=== PATIENT | female | born 1940 | race Caucasian/White ===

== ENCOUNTER 2020-01-10 07:50 | Day surgery (SDC) | payer MEDICARE, OTHER ==
[~2020-01-10 07:50] MED LIST: ACETAMINOPHEN 500 MG TABLET PO ONE; CEFAZOLIN 2 Gram 2 GM/50 ML BAG IVPB ONE; FAMOTIDINE 20MG TABLET PO ONE; METOCLOPRAMIDE 10 MG TABLET PO ONE; SCOPOLAMINE 1 PATCH TDSY TD ONE; VANCOMYCIN 1GM/200ML PREMIX 1 GM/200 ML PIGGYBACK IVPB ONE
[2020-01-10] MEDS ORDERED: DEXAMETHASONE 4 MG/ML 1ML VIAL IVP ONE (07:51)
[2020-01-10] MEDS ORDERED: MIDAZOLAM HCL 2MG/2ML VIAL IV ONE (07:51)
[2020-01-10] MEDS ORDERED: PHENYLEPHRINE HCL 10 MG/ML VIAL IVP ONE (07:51)
[2020-01-10] MEDS ORDERED: PROPOFOL 10 MG/ML VIAL IV ONE (07:51)
[2020-01-10] MEDS ORDERED: EPHEDRINE SULFATE 50 MG/ML ML IV ONE (07:51)
[2020-01-10] MEDS ORDERED: ROPIVACAINE HCL (NAROPIN) /PF 5MG/ML 20ML VIAL IV ONE (07:51)
[2020-01-10] MEDS ORDERED: LIDOCAINE 2% MDV (20MG/ML) 20ML VIAL IV ONE (07:51)
[2020-01-10 08:45] LABS: INFLUENZA A NEGATIVE (NEGATIVE); INFLUENZA B NEGATIVE (NEGATIVE)
[2020-01-10] MEDS ORDERED: 0.9 % SODIUM CHLORIDE 1000ML 1,000 ML IV ONE ×2 (08:55→10:45)
[2020-01-10] MEDS ORDERED: BUPIVACAINE LIPOSOME 266MG/20ML VIAL IU ONE (11:21)
[2020-01-10] MEDS ORDERED: TRANEXAMIC ACID 1,000 MG/10 ML ML IU ONE (11:21)
[2020-01-10] MEDS ORDERED: BUPIVACAINE 0.5% W/EPI MPF 30 ML VIAL SQ ONE (11:21)
[2020-01-10] MEDS ORDERED: TRANEXAMIC ACID 1,000 MG/10 ML ML IVPB ONE (11:22)
[2020-01-10] MEDS ORDERED: VANCOMYCIN HCL 1 GM VIAL IR ONE (11:22)
[2020-01-10] MEDS ORDERED: VANCOMYCIN HCL 1 GM VIAL IU ONE (11:22)
[2020-01-10 11:27] LABS: ABO GROUP O; ANTIBODY SCREEN NEGATIVE (NEGATIVE); RH TYPE POSITIVE
[2020-01-10] MEDS ORDERED: HYDROCODONE/APAP 7.5/325MG TABLET PO PRN (12:43)
[2020-01-10] MEDS ORDERED: ACETAMINOPHEN W/ CODEINE 300MG/30MG TABLET PO PRN ×2 (12:43)
[2020-01-10] MEDS ORDERED: ACETAMINOPHEN W/ CODEINE 300MG/60MG TABLET PO PRN (12:43)
[2020-01-10] MEDS ORDERED: TRAMADOL HCL 50 MG TABLET PO PRN ×2 (12:43)
[2020-01-10] MEDS ORDERED: BISACODYL 10 MG SUPP RC PRN (12:43)
[2020-01-10] MEDS ORDERED: DIPHENHYDRAMINE HCL 25 MG CAPSULE PO PRN (12:43)
[2020-01-10] MEDS ORDERED: MAGNESIUM HYDROXIDE 30 ML UDC PO PRN (12:43)
[2020-01-10] MEDS ORDERED: KETOROLAC 30 MG/ML VIAL IVP PRN (12:43)
[2020-01-10] MEDS ORDERED: AL HYDROX/MAG HYDROX 30ML UD PO PRN (12:43)
[2020-01-10] MEDS ORDERED: ZOLPIDEM TARTRATE 5 MG TABLET PO PRN (12:43)
[2020-01-10] MEDS ORDERED: PROMETHAZINE HCL 12.5 MG in 0.9 % SODIUM CHLORIDE 100ML 50 ML IVPB PRN (12:43)
[2020-01-10] MEDS ORDERED: METOCLOPRAMIDE HCL 10 MG/2 ML VIAL IVP PRN (12:43)
[2020-01-10] MEDS ORDERED: ONDANSETRON HCL IV 4 MG/2 ML VIAL IVP PRN (12:43)
[2020-01-10] MEDS ORDERED: ACETAMINOPHEN 325 MG TAB PO PRN (12:43)
[2020-01-10] MEDS ORDERED: HYDROMORPHONE HCL 2 MG/ML VIAL IM PRN ×2 (12:43)
[2020-01-10] MEDS ORDERED: NALOXONE 0.4 MG/1 ML VIAL IVP PRN (12:43)
[2020-01-10] MEDS: DEXTROSE 5 % AND 0.9 % NACL 1,000 ML IV PRN (14:19)
[2020-01-10] MEDS: HYDROCODONE/APAP 5/325MG TABLET PO PRN ×3 (15:10→19:40)
--- NOTE | 2020-01-10 15:15 | Rehab Evaluation ---
Patient Information - Patient Information Diagnosis: L knee DJD Ordered Treatment: PT Evaluate and Treat Status: Initial Evaluation Surgery: Yes (L TKA) Date of Surgery: 01/10/20 Past Medical/Surgical Hx: PAST MEDICAL/SURGICAL HISTORY Surgery to Affected Area? No Recent Surgery? Past Surgical History HYST CERVICAL SURGERIES X'S 2 RIGHT BREAST LUMPECTOMY CANCER 2012 NEPHRECTOMY LEFT CANCER 2017 C SCOPES BILATERAL CATS PMH - Respiratory Hx Respiratory Disorders Yes Hx Bronchitis Yes: HX OF Hx Pneumonia Yes: HX OF Hx Sleep Apnea Yes Hx of CPAP No Hx of URI Yes PMH - Cardiovascular Hx Cardiovascular Disorders No Exercise Tolerance Fair PMH - Neuro Hx Neurological Disorders No PMH - GI Hx Gastrointestinal Disorders Yes Hx Gastroesophageal Reflux Yes: RARELY Hx Irritable Bowel Yes: HX OF PMH - Hx Genitourinary Disorders Yes Hx Renal Disease Yes: CANCER NEPHRECTOMY PMH - Endocrine Hx Endocrine Disorders No PMH - Musculoskeletal Hx Musculoskeletal Disorders Yes Hx Arthritis Yes: LEFT KNEEE Hx Back Injury Yes PMH - Psych Hx Psychiatric Problems Yes Hx Anxiety Yes: ON MEDS WITH FAIR CONTROL Comment: CLAUSTRAPHOBIA PMH - Hematology/Oncology Hx Hematology/Oncology Yes Disorders Hx Anemia Yes: HX OF Hx Bruising Yes Hx Cancer Yes: KIDNEY AND RIGHT BREAST Hx Chemotherapy No Hx Radiation Therapy No Hx Blood Transfusion Reaction No Premorbid Status: Detail (The patient was independent with all mobility prior to surgery.) Social History: Detail (The patient lives with spouse in a 2 story house with 3 steps at the enterance with no handrails. The patient will not be using the second floor prior to surgery. The bathroom is equipped with: a tub/shower combination,tub bench, standard height toilet. There is a garb bar by the tub but not the toilet. The patient has a front wheeled walker, 4 wheeled walker.) Precautions: [place], Fall, Other (WBAT on the L LE.) - Time With Patient Total Time Spent With Patient (Min): 25 Treatment Procedures: Detail (Initial Evaluation, low complexity) Subjective Information - Subjective Information Per Patient (The patient had level 1 pain in L knee initially. The patient compl ained of numbness in L foot when standing and ambulating.) Objective Data - Mental Status Patient Orientation: Oriented x3 - Visual Perception Appears within normal limits for therapeutic activities - ROM Not within normal limits (The patient's L knee AROM was limited s/p surgery. All other LE AROM was WNL.) - Strength/Tone Other (The patient's LE strength was not tested s/p surgery however was functional.) - Bed Mobility Independent (The patient was independent with supine to and from sit transfer and scooting up in bed.) - Transfers Independent (The patient was independent with sit to and from stand transfer.) - Balance Balance Sitting: Good Balance Standing: Good - Gait Detail (The patient ambulated with front wheeled walker a distance of 7.5 feet x 2 (to and from bathroom) WBAT on L LE with supervision of one for safety. The patient declined to ambulate in ta do to numbness in L foot. The patient's L knee occasonally buckled also.) Therapy Assessment - Therapy Assessment Detail (The patient was independent with transfers and bed mobility and ambulated with supervision for safety. The patient will be seen for 1 to 2 sessions for completion of inpt. PT goals.) Problem List - Problem List Physical Therapy Problem List: Detail (Decreased L knee AROM and decreased L LE strength) Goals - Goals Physical Therapy Goals: 1) The patient will ambulate with assistive device WBAT on the L LE a distance of 100 feet independently. 2) The patient will ambulate on stairs using proper technique with supervision for safety. 3) The patient will be independent with TKA HEP. Prognosis - Prognosis Good Plan - Plan Physical Therapy Plan: PT 1-2 sessions for instruction in TKA HEP and gait training on levels and stairs.
[2020-01-10] MEDS: VANCOMYCIN 1GM/200ML PREMIX 1 GM/200 ML PIGGYBACK IVPB SCH (21:31)
[2020-01-10] MEDS: FERROUS SULFATE 325 MG TAB PO SCH (21:32)
[2020-01-10] MEDS: DOCUSATE SODIUM 100 MG CAPSULE PO SCH (21:33)
[2020-01-10] MEDS ORDERED: TRAZODONE 50MG PO SCH (22:00)
[2020-01-10] MEDS ORDERED: PRAVASTATIN 40MG PO SCH (22:00)
[2020-01-11] MEDS: HYDROCODONE/APAP 5/325MG TABLET PO PRN ×2 (00:51→07:01)
[2020-01-11] MEDS: DEXTROSE 5 % AND 0.9 % NACL 1,000 ML IV PRN (00:52)
[2020-01-11] MEDS: CITALOPRAM 20 MG PO SCH ×2 (07:03→09:29)
--- NOTE | 2020-01-11 07:13 | Operative Note ---
DATE OF SURGERY: 01/10/2020 PREOPERATIVE DIAGNOSIS: END STAGE LEFT KNEE ARTHROSIS. POSTOPERATIVE DIAGNOSIS: END STAGE LEFT KNEE ARTHROSIS. OPERATION: LEFT TOTAL KNEE ARTHROPLASTY. SURGEON: Nikita Schafer M.D. ANESTHESIA: Spinal. ANESTHESIA PROVIDER: Gage Figueroa CRNA COMPLICATIONS: None. BLOOD LOSS: Minimal. TOURNIQUET: No tourniquet. Aquamantys used during the entire procedure. OPERATIVE FINDINGS: Chondromalacia to the medial compartment. COMPONENTS PLACED: A 2 gram Vancomycin cemented [employer] Journey II Oxinium total knee arthroplasty system size 3 femoral component, size 3 tibial baseplate, a 13 mm thick tibial poly insert and a 29 mm cemented patellar component. INDICATIONS: This is a 79-year-old female with knee arthrosis and pain for several years. She has failed nonoperative treatments including antiinflammatory injections, and steroid injections and she wished to proceed with knee replacement at this point. I explained the risks and benefits in detail for the diagnosis and procedure including, but not limited to infection, nerve injury, vessel injury, persistent pain, stiffness, numbness and tingling in the knee, periprosthetic fracture, need for resection arthroplasty if components become infected or loosen, nerve injury, vessel injury, blood clot, need for anticoagulation, risks associated with these medications, and need for further procedures. All of her questions were answered. Rehab course outlined. She agreed to proceed. PROCEDURE: The patient was brought to the Operating Room, placed in the supine position after spinal anesthesia induced. The left lower extremity and knee were prepped and draped in sterile fashion. Left knee was prepped again with ChloraPrep after it was draped. Intraoperative timeout was performed. The leg was exsanguinated with Esmarch. No tourniquet was used. Aquamantys was used in every layer of the procedure for cauterization. Next the skin and subcutaneous tissues were dissected down, dissected down to the medial capsule. Incised the medial capsule along the medial border of the patella to the tibial tubercle. Incised the vastus medialis in line with its fibers in a mid vastus approach. Next we partially resected the retropatellar fat pad, elevated the capsule subperiosteally and medially, everted the patella, flexed the knee. She had chondromalacia of the medial compartment. We did Aquamantys cautery in every layer here. Next drilled intracondylar drill hole, inserted the intramedullary guide gaby, 6- degree cutting block, all aligned off the distal femoral condyles. Pinned it in place +2 mm position and cut the distal femoral condyles. Next we placed a sizing jig on the distal femoral condyle and sized it to be right on size 3. Next through the previously placed pin holes, we placed a size 3 5-in-1 cutting jig down to the anterior cut so it would come out flush without notching. We cut that cut and it was a good cut, and then cut the remainder of the chamfer cuts in the usual fashion. Next placed a size 3 femoral component, centered it, pinned it, and then inserted the resection collet, reamed out and box Osteomed with the cruciate bone block. Next we removed osteophytes off the periphery. Next attention was turned to the tibia. We exposed the tibia, seated the spikes, external alignment jig in the tubercular groove 2 fingerbreadths distal to the anterior tibial cortex for slight posterior slope in reference for a 7 mm cut off the higher lateral plateau and we pinned the cutting jig provisionally to the anterior-posterior pins. Next we then rechecked the cutting jig with a drop gaby centered on the tibial anatomic axis and cross-pinned it completing its fixation. Next we cut the tibia. Next we removed osteophytes off the posterior femoral condyles using a curved osteotome and again checked flexion/extension gaps with a 9 mm thick poly insert and we sized up to basically a 13, this allowed for 1-2 mm varus valgus laxity in flexion/extension. Overall alignment cuts and extension with anatomic valgus orientation, the alignment gaby centered the hip joint and ankle joint. Next we took the knee in flexion and sized the tibial base plate to a size 3, replaced all trial components, set the rotation tibial baseplate again in extension using the alignment gaby centered on the hip joint and ankle joint. Marked fem dorantes on the anterior cortex off the laser dorantes of the tibial baseplate. Attention was turned to the patella. Measured the patella, set the cutting jig to allow for a 9 mm thick poly insert, cut the patella, remeasured right on 12, sized to be 29, drilled three peg holes and inserted the trial patella component, mixed cement. The patella tracked nicely handsfree with full extension, approximately 120-130 degrees. We then changed gloves and brought in clean sheets. We copiously irrigated the bony surfaces with pulse lavage antibiotic solution, cauterized the posterior capsule mediolateral again with Aquamantys and then placed a bone plug in the femoral canal hole. Next, after irrigation and CarboJet to dry off the bone, we pre-coated both surfaces with cement, packed down the tibial component and then the femoral component. We placed the trial tibial poly liner, held the knee in extension until the cement hardened and clamped down the patellar component removing excess cement as we went. We took the knee in flexion, distracted the knee with bone hook and sponge. We removed the trial patellar and tibial component, irrigated copiously removing any excess cement, again cauterized, irrigated, cauterized and then inserted our joint mixture with several sticks into the posterior capsule and mediolateral periosteum. Inserted the real tibial poly insert and verified it was interlocked mediolaterally, found range of motion to be the same. We irrigated, cauterized again closing capsule in flexion using the running #2 Quill suture. We irrigated it again, closed the skin deep with 2-0 Vicryl and JACQUES dressing was applied. The patient tolerated the procedure well. No intraoperative complications. Sponge, needle and blade counts were correct. Recovery Room stable. Neurovascularly intact. Discharged as an outpatient and discharge will likely be tomorrow. Follow-up in two weeks. JOB NUMBER: [id number] MTDD
[2020-01-11 07:14] LABS: HEMOGLOBIN 11.3 gm/dl (11.6-16.0)
--- NOTE | 2020-01-11 07:54 | Rehab Evaluation ---
Patient Information - Patient Information Diagnosis: L knee DJD Ordered Treatment: OT Evaluate and Treat Status: Initial Evaluation Surgery: Yes (L TKA) Date of Surgery: 01/10/20 Past Medical/Surgical Hx: PAST MEDICAL/SURGICAL HISTORY Surgery to Affected Area? No Recent Surgery? Past Surgical History HYST CERVICAL SURGERIES X'S 2 RIGHT BREAST LUMPECTOMY CANCER 2012 NEPHRECTOMY LEFT CANCER 2017 C SCOPES BILATERAL CATS PMH - Respiratory Hx Respiratory Disorders Yes Hx Bronchitis Yes: HX OF Hx Pneumonia Yes: HX OF Hx Sleep Apnea Yes Hx of CPAP No Hx of URI Yes PMH - Cardiovascular Hx Cardiovascular Disorders No Exercise Tolerance Fair PMH - Neuro Hx Neurological Disorders No PMH - GI Hx Gastrointestinal Disorders Yes Hx Gastroesophageal Reflux Yes: RARELY Hx Irritable Bowel Yes: HX OF PMH - Hx Genitourinary Disorders Yes Hx Renal Disease Yes: CANCER NEPHRECTOMY PMH - Endocrine Hx Endocrine Disorders No PMH - Musculoskeletal Hx Musculoskeletal Disorders Yes Hx Arthritis Yes: LEFT KNEEE Hx Back Injury Yes PMH - Psych Hx Psychiatric Problems Yes Hx Anxiety Yes: ON MEDS WITH FAIR CONTROL Comment: CLAUSTRAPHOBIA PMH - Hematology/Oncology Hx Hematology/Oncology Yes Disorders Hx Anemia Yes: HX OF Hx Bruising Yes Hx Cancer Yes: KIDNEY AND RIGHT BREAST Hx Chemotherapy No Hx Radiation Therapy No Hx Blood Transfusion Reaction No Premorbid Status: Detail (The patient was independent with all mobility and ADLs prior to surgery.) Social History: Detail (The patient lives with spouse in a 2 story house with 3 steps at the enterance with no handrails. The patient will not be using the second floor prior to surgery. The bathroom is equipped with: a tub/shower combination,tub bench, standard height toilet. There is a garb bar by the tub but not the toilet. The patient has a front wheeled walker, 4 wheeled walker.) Precautions: [place], Fall, Other (WBAT on the L LE.) - Time With Patient Total Time Spent With Patient (Min): 25 Treatment Procedures: Detail (OT eval low) Objective Data - Pain Pain Present: Yes Pain Intensity: 4 (Pt just received pain meds from nsg.) Pain Scale Used: Numeric (1 - 10) - Mental Status Patient Orientation: Oriented x3 - Visual Perception Appears within normal limits for therapeutic activities (Pt wears glasses) - ROM Within normal limits (BUE's) - Strength/Tone Within normal limits (BUE's. Pt does state that she gets a lot of muscular pain in bilateral shlds since her cervical sx's but is "used to it" and has not noticed any issues in arms when using walker) - Coordination Appears within normal limits for therapeutic activities - Bed Mobility Independent (supine to short sit edge of bed) - Transfers Independent (sit <> stand t/f using 2WW) - Balance Balance Sitting: Good - Gait Detail (Pt ambulated independently from bed into bathroom and back but did c/o feeling a little weak.) - ADL's/IADL's Detail (Pt educated on and received handout on modified lower body drsg technique. She demonstrated independence with technique and was able to don socks, pants, shirt, sweater independently. Max A for compression stockings. Pt will have assistance from spouse at home if she has any difficulty in the first few days following sx with reaching feet for sock/shoe don/doff. Independent sit>stand t/f and ambulation using 2WW from bed into bathroom to complete lotion don standing at sink. Independent amb back to bed. Pt with spouse with call light and tray table in reach upon leaving.) Therapy Assessment - Therapy Assessment Detail (Pt educated on and demonstrated independence with modified lower body drsg technique. No further inpatient OT needed at this time.) Problem List - Problem List Physical Therapy Problem List: Detail (Decreased L knee AROM and decreased L LE strength) Goals - Goals Physical Therapy Goals: 1) The patient will ambulate with assistive device WBAT on the L LE a distance of 100 feet independently. 2) The patient will ambulate on stairs using proper technique with supervision for safety. 3) The patient will be independent with TKA HEP. Prognosis - Prognosis Good Plan - Plan Physical Therapy Plan: PT 1-2 sessions for instruction in TKA HEP and gait training on levels and stairs. Occupational Therapy Plan: No further inpatient OT needed at this time.
[2020-01-11] MEDS: VANCOMYCIN 1GM/200ML PREMIX 1 GM/200 ML PIGGYBACK IVPB SCH (08:31)
[2020-01-11] MEDS: DOCUSATE SODIUM 100 MG CAPSULE PO SCH (09:30)
[2020-01-11] MEDS: FERROUS SULFATE 325 MG TAB PO SCH (09:30)
[2020-01-11] MEDS ORDERED: RIVAROXABAN 10 MG TABLET PO SCH (10:00)
[2020-01-11] MEDS ORDERED: CELECOXIB 100 MG CAPSULE PO SCH (10:00)
--- NOTE | 2020-01-11 10:20 | Physical Therapy Tx Note ---
Physical Therapy Tx Note - Treatment Note Tolerated: Good Total Time Spent With Patient: 30 Physical Therapy Tx Note: Detail (The patient was seated on the edge of the bed when PT arrived. The patient ambulated 110 feet x 1, WBAT on the L LE with front wheeled walker independently. The patient ambulated on 3 steps with use of handrail and folded walker using proper technique with supervision for safety. The patient's TKA HEP was reviewed including seated heel slides, supine heel slides, ankle pumps, quad sets, gluteal sets, hamstring sets and SLR. The patient complained that her L LE still felt numb/not right. Pt. did have one incident of L knee partially hyperextending back. The patient's nurse was notified of pt's continued numb feeling in L LE. The pt. has met all inpt. PT goals and is discharged from inpt. PT.) Physical Therapy Problem List: Detail (Decreased L knee AROM and decreased L LE strength) Physical Therapy Goals: GOALS MET: 1) The patient will ambulate with assistive device WBAT on the L LE a distance of 100 feet independently. 2) The patient will ambulate on stairs using proper technique with supervision for safety. 3) The patient will be independent with TKA HEP. Physical Therapy Plan: The patient is discharged from inpt. PT and is to continue with home PT services.
== END 2020-01-11 14:10 | disposition home or self-care (01) ==
LOC: SUR 07:50 → MEDSURG 13:22 → SUR 01-11 14:10
PROVIDERS: ATTEND Orthopaedic Surgery
DX: M17.12 Unilateral primary osteoarthritis, left knee (principal); M94.262 Chondromalacia, left knee; E78.00 Pure hypercholesterolemia, unspecified; Z90.5 Acquired absence of kidney; Z85.528 Personal history of other malignant neoplasm of kidney
CPT/HCPCS: 76942; 85014; 85018; 86850; 86900; 86901; 87400; C1776; J1885; J2370; J3370; J7030; J7042